=== PATIENT | female | born 1970 ===

== ENCOUNTER 2017-04-15 09:58 | Day surgery (SDC) | payer BC ==
[~2017-04-15 09:58] MED LIST: Dexamethasone 4 MG/ML 5 ML MDV ONE; HYDROmorphone 1 MG/ML Syringe ONE; Ketorolac 30 MG/ML SDV ONE; Lactated Ringers 1,000 ML IV SCH; Lidocaine 1% 4 ML ONE; Lidocaine 1%/Sod Bicarbonate in NS 8.4% 1 ML Syringe IV PRN; Midazolam 1 MG/ML 2 ML SDV ONE; Ondansetron 4 MG/2 ML SDV ONE; Propofol 200 MG/20 ML SDV ONE; Sodium Chloride 0.9% 10 ML Syringe FLUSH PRN; Succinylcholine 200 MG/10 ML MDV ONE; ceFAZolin 1 GM Vial ONE; fentaNYL 100 MCG/2 ML SDV ONE
[2017-04-15] MEDS ORDERED: Lactated Ringers 1,000 ML ONE (10:06)
--- NOTE | 2017-04-15 10:21 | PCM.PREANE ---
Preanesthetic Assessment - Anesthesia/Transfusion/Family Hx Anesthesia History: No Prior Anesthesia Family History of Anesthesia Reaction: No Transfusion History: Prior Transfusion Without Reaction Intubation History: Unknown - Review of Systems General: No Symptoms (Last drank ETOH 10 years ago.) Pulmonary: No Symptoms Cardiovascular: No Symptoms Gastrointestinal: No Symptoms Neurological: No Symptoms ([facility] 02/2017) Other: Reports: None - Physical Assessment NPO Status Date: 04/14/17 NPO Status Time: 19:30 Pulse: 78 O2 Sat by Pulse Oximetry: 100 Respiratory Rate: 16 Blood Pressure: 122/75 Temperature: 36.7 C Height: 1.68 m Weight: 63.503 kg ASA Class: 2 Mental Status: Alert & Oriented x3 Airway Class: Mallampati = 2 Dentition: Reports: Normal Dentition, Caries Thyro-Mental Finger Breadths: 3 Mouth Opening Finger Breadths: 3 ROM/Head Extension: Full Lungs: Clear to Auscultation, Normal Respiratory Effort Cardiovascular: Regular Rate, Regular Rhythm, No Murmurs - Allergies Allergies/Adverse Reactions: Allergies Allergy/AdvReac Type Severity Reaction Status Date / Time No Known Allergies Allergy Verified 04/14/17 12:23 - Anesthesia Plan Pre-Op Medication Ordered: None - Acknowledgements Anesthesia Type Planned: General Anesthesia Pt an Appropriate Candidate for the Planned Anesthesia: Yes Alternatives and Risks of Anesthesia Discussed w Pt/Guardian: Yes Pt/Guardian Understands and Agrees with Anesthesia Plan: Yes PreAnesthesia Questionnaire HEENT History: Reports: Impaired Vision, Other (See Below) Other HEENT History: impaired vision Cardiovascular History: Reports: None Respiratory History: Reports: None Gastrointestinal History: Reports: None Genitourinary History: Reports: None SLIP LASTER History: Reports: , Other (See Below) Other OB/BYN History: prolonged menses, menorrhagia Musculoskeletal History: Reports: Other (See Below) Other Musculoskeletal History: [facility] 02/2017 Neurological History: Reports: Other (See Below) Other Neuro History: dizziness Psychiatric History: Reports: Addiction Endocrine/Metabolic History: Reports: None Hematologic History: Reports: Anemia Immunologic History: Reports: None Oncologic (Cancer) History: Reports: None Dermatologic History: Reports: None - Past Surgical History Head Surgeries/Procedures: Reports: None Cardiovascular Surgical History: Reports: None Respiratory Surgical History: Reports: None GI Surgical History: Reports: None Female Surgical History: Reports: None Endocrine Surgical History: Reports: None Neurological Surgical History: Reports: None Oncologic Surgical History: Reports: None Dermatological Surgical History: Reports: None - SUBSTANCE USE Smoking Status *Q: Never Smoker Recreational Drug Use History: No - HOME MEDS Home Medications: Home Meds Misoprostol [Cytotec] 200 mcg PO ASDIRECTED #40 tablet 04/13/17 [Rx] Multivitamin [Multi-Vitamin Daily] 1 tab PO DAILY 04/13/17 [History] Ferrous Sulfate [Iron] 325 mg PO TID 04/14/17 [History] - CURRENT (IN HOUSE) MEDS Current Meds: Current Medications Lactated Ringer's (Ringers, Lactated) 1,000 mls @ 125 mls/hr IV ASDIRECTED WON Stop: 04/15/17 23:00 Lidocaine/Sodium Bicarbonate (Buffered Lidocaine 1% In Ns 8.4%) 0.25 ml IV ONETIME PRN PRN Reason: Prior to IV Start Stop: 04/15/17 18:00 Sodium Chloride (Saline Flush) 10 ml FLUSH ASDIRECTED PRN PRN Reason: Keep Vein Open Stop: 04/15/17 18:00 Discontinued Medications Cefazolin Sodium (Ancef) Confirm Administered Dose 2 gm .ROUTE .STK-MED ONE Stop: 04/15/17 07:42 Dexamethasone (Dexamethasone) Confirm Administered Dose 20 mg .ROUTE .STK-MED ONE Stop: 04/15/17 07:42 Fentanyl (Sublimaze) Confirm Administered Dose 100 mcg .ROUTE .STK-MED ONE Stop: 04/15/17 07:42 Hydromorphone HCl (Dilaudid) Confirm Administered Dose 1 mg .ROUTE .STK-MED ONE Stop: 04/15/17 08:57 Lidocaine HCl (Xylocaine-Mpf 1%) Confirm Administered Dose 4 mls @ as directed .ROUTE .STK-MED ONE Stop: 04/15/17 07:42 Lactated Ringer's (Ringers, Lactated) Confirm Administered Dose 1,000 mls @ as directed .ROUTE .STK-MED ONE Stop: 04/15/17 10:07 Ketorolac Tromethamine (Toradol) Confirm Administered Dose 30 mg .ROUTE .STK- MED ONE Stop: 04/15/17 07:42 Midazolam HCl (Versed 1 Mg/Ml) Confirm Administered Dose 2 mg .ROUTE .STK-MED ONE Stop: 04/15/17 07:43 Ondansetron HCl (Zofran) Confirm Administered Dose 4 mg .ROUTE .STK-MED ONE Stop: 04/15/17 07:42 Propofol (Diprivan 20 Ml) Confirm Administered Dose 200 mg .ROUTE .STK-MED ONE Stop: 04/15/17 07:42 Propofol (Diprivan 20 Ml) Confirm Administered Dose 200 mg .ROUTE .STK-MED ONE Stop: 04/15/17 08:24 Succinylcholine Chloride (Quelicin) Confirm Administered Dose 200 mg .ROUTE .STK -MED ONE Stop: 04/15/17 08:24
[2017-04-15] MEDS ORDERED: fentaNYL 100 MCG/2 ML SDV IVPUSH PRN (11:59)
[2017-04-15] MEDS ORDERED: Ondansetron 4 MG/2 ML SDV IVPUSH PRN (11:59)
[2017-04-15] MEDS ORDERED: diphenhydrAMINE 50 MG/ML SDV IVPUSH PRN (11:59)
[2017-04-15] MEDS ORDERED: HYDROmorphone 0.5 MG/0.5 ML Syringe IVPUSH PRN (11:59)
[2017-04-15] MEDS ORDERED: HYDROmorphone 1 MG/ML Syringe ONE (12:11)
--- NOTE | 2017-04-15 12:24 | PCM.OPNOTE ---
- General Post-Op/Procedure Note Date of Surgery/Procedure: 04/15/17 Operative Procedure(s): Dilatation curettage hysteroscopy 42602 Pre Op Diagnosis: Heavy menstrual periods prolonged menstrual periods, anemia iron deficiency chronic blood loss Post-Op Diagnosis: Same Anesthesia Technique: General ET Tube Primary Surgeon: Nelson Hoffmann Anesthesia Provider: Alberta Dugan Anchor Operator: Shirlene Bates) Fluid Replacement, Intraop: 800 Output, Urine Amount: 0 EBL in mLs: 10 Complications: None Condition: Good Free Text/Narrative:: Patient was transported to operating room #3 and placed under general anesthesia in the low dorsal lithotomy position and prepared and draped in sterile fashion. Timeout performed confirming name date of and procedure as D&C and hysteroscopy. SCDs in place and functioning prior surgery Ancef 2 g given intravenously prior surgery. Examination under anesthesia revealed anterior uterus no adnexal masses the uterus cervical canal is artery dilated sufficiently well to accommodate the uterine sound uterus sounded to 8 cm. The hysteroscope was then introduced and prompt visualization of the endometrial cavity including left and right tubal ostia. There was increased tissue at the lower uterine segment posteriorly for approximately 3:00 to 10:00 this was subsequently removed with curettage and reevaluation with the hysteroscope revealed that this tissue was collected with the curettage. All tissue was sent to pathology for tissue evaluation. Patient had no bleeding at the time of the end of the procedure. Transported to postanesthesia care unit in satisfactory condition. One set of pictures taken 6 pictures image 001 shows the patient's right tubal ostia with a cloudy appearing white area of tissue that was floating passed the tubal ostium. Image 002 shows additional white debris floating in the endometrial cavity which was subsequently removed with the curettage image 003 shows the left tubal ostium at approximately 3:00 image 004 shows the tissue aforementioned from 3:00 to 10:00 posteriorly. Mrs. 005 and image 006 shows the lower uterine segment after removal of the tissue noted in image 004. I talked with family concerning findings at surgery. Patient has follow-up appointment for April 25.
[2017-04-15] MEDS ORDERED: ePHEDrine 50 MG/ML SDV ONE (12:28)
--- NOTE | 2017-04-15 12:37 | PCM.POSTAN ---
POST ANESTHESIA ASSESSMENT - MENTAL STATUS Mental Status: Alert - VITAL SIGNS Pulse Rate: 86 SaO2: 100 Resp Rate: 14 Blood Pressure: 122/75 Temperature: 36.8 C - RESPIRATORY Respiratory Status: Respiratory Rate WNL, Airway Patent, O2 Saturation Stable, Supplemental Oxygen - CARDIOVASCULAR CV Status: Pulse Rate WNL, Blood Pressure Stable - GASTROINTESTINAL GI Status: No Symptoms - POST OP HYDRATION Hydration Status: Adequate & Stable
--- NOTE | 2017-04-15 12:46 | PCM48HPAN ---
Post Anesthesia Note - EVALUATION WITHIN 48HRS OF ANESTHETIC Vital Signs in Normal Range: Yes Patient Participated in Evaluation: Yes Respiratory Function Stable: Yes Airway Patent: Yes Cardiovascular Function Stable: Yes Hydration Status Stable: Yes Pain Control Satisfactory: Yes Nausea and Vomiting Control Satisfactory: Yes Mental Status Recovered: Yes
[2017-04-15 14:27] VITALS: BP 109/78
== END 2017-04-15 14:30 | disposition home or self-care (01) ==
LOC: JD.SDS 09:58
PROVIDERS: ATTEND Obstetrics & Gynecology
DX: N92.0 Excessive and frequent menstruation with regular cycle (principal); D50.0 Iron deficiency anemia secondary to blood loss (chronic); Z79.899 Other long term (current) drug therapy
CPT/HCPCS: 36415; 58558; 84702; 85025; 86850; 86900; 86901; 86922; J0690; J1100; J1170; J1885; J2250; J2405; J3010; J7120; 00952; J0330; J2704